=== PATIENT | female | born 1990 | race Caucasian/White ===

== ENCOUNTER 2020-07-06 18:46 | Emergency (ER) | payer OTHER ==
[~2020-07-06 18:46] MED LIST: MACROBID 100 M100 MG PO; PYRIDIUM100 MG PO
[2020-07-06 23:25] LABS: HEMOGLOBIN 13.8 gm/dl (12.3-15.3); RED BLOOD COUNT 4.63 M/UL (4.00-5.10); WHITE BLOOD COUNT 11.6 K/UL (4.5-11.0)
[2020-07-06 23:46] LABS: BUN/CREATININE RATIO 17 (0-10)
[2020-07-07] MEDS ORDERED: [UNRECOGNIZED DRUG - REMARK] (01:23)
== END 2020-07-07 01:45 | disposition home or self-care (01) ==
LOC: ER1 18:46
PROVIDERS: Family Medicine
DX: O99.891 Other specified diseases and conditions complicating pregnancy (principal); R10.2 Pelvic and perineal pain; Z3A.01 Less than 8 weeks gestation of pregnancy
CPT/HCPCS: 80053; 81001; 84702; 84703; 85025; 99284

== ENCOUNTER → 2020-07-09 | Outpatient (CLI) | payer OTHER ==
[~2020-07-09] MED LIST changes: +[UNRECOGNIZED DRUG - REMARK]
== END ==
LOC: EXRD 15:12
DX: Z33.1 Pregnant state, incidental (principal); Z3A.01 Less than 8 weeks gestation of pregnancy
CPT/HCPCS: 76817

== ENCOUNTER 2020-08-09 07:21 | Emergency (ER) | payer OTHER ==
[2020-08-09 08:45] LABS: HEMOGLOBIN 13.3 gm/dl (12.3-15.3); RED BLOOD COUNT 4.37 M/UL (4.00-5.10); WHITE BLOOD COUNT 8.3 K/UL (4.5-11.0)
[2020-08-09 09:31] LABS: BUN/CREATININE RATIO 12 (0-10)
== END 2020-08-09 13:08 | disposition home or self-care (01) ==
LOC: ER1 07:21
PROVIDERS: Student in an Organized Health Care Education/Training Program
DX: O20.0 Threatened abortion (principal); Z3A.12 12 weeks gestation of pregnancy
CPT/HCPCS: 76815; 80053; 81001; 84702; 85025; 86850; 86900; 86901; 96372; 99284; J2790; J2791